=== PATIENT | male | born 1975 | race Two or more races ===

== ENCOUNTER 2020-05-21 09:45 | Emergency (ER) | payer OTHER ==
[~2020-05-21] VITALS: Ht 170.2 cm; Wt 102.1 kg
[2020-05-21 09:53] VITALS: BP 163/98
[2020-05-21] MEDS ORDERED: HYDROcodone-ACET 10/325MG TAB PO ONE (10:30)
== END 2020-05-21 10:57 | disposition home or self-care (01) ==
LOC: ER 09:45
DX: S39.012A Strain of muscle, fascia and tendon of lower back, initial encounter (principal); S76.011A Strain of muscle, fascia and tendon of right hip, initial encounter; F17.210 Nicotine dependence, cigarettes, uncomplicated; V43.52XA Car driver injured in collision with other type car in traffic accident, initial encounter; Y93.89 Activity, other specified; Y92.488 Other paved roadways as the place of occurrence of the external cause; Y99.8 Other external cause status
CPT/HCPCS: 72100; 73502

== ENCOUNTER 2020-05-29 14:23 | Emergency (ER) | payer SELFPAY | END 2020-05-29 14:36 | disposition left against medical advice (07) | LOC: EDBD 14:23 → ER 14:23 | DX: G40.909 Epilepsy, unspecified, not intractable, without status epilepticus (principal); F17.210 Nicotine dependence, cigarettes, uncomplicated ==